=== PATIENT | male | born 1945 | race Caucasian/White ===

== ENCOUNTER → 2017-11-29 | Outpatient (CLI) | payer OTHER, MEDICARE | LOC: BMCIMAGING 15:25 | PROVIDERS: ATTEND Internal Medicine Rheumatology | DX: J43.9 Emphysema, unspecified (principal) | CPT/HCPCS: 83516-90; 83520-90 ==

== ENCOUNTER → 2018-07-31 | Outpatient (CLI) | payer OTHER, MEDICARE | END | disposition home or self-care (01) | LOC: BMCIMAGING 14:23 | PROVIDERS: ATTEND Internal Medicine | DX: J98.9 Respiratory disorder, unspecified (principal) ==

== ENCOUNTER → 2018-11-13 | Outpatient (CLI) | payer OTHER, MEDICARE | LOC: BMCIMAGING 09:36 | PROVIDERS: ATTEND Internal Medicine | DX: N60.31 Fibrosclerosis of right breast (principal) ==